=== PATIENT | female | born 2000 | race Caucasian/White ===

== ENCOUNTER 2020-04-14 06:57 | Outpatient (NON) | payer OTHER, SELFPAY ==
[2020-04-15 18:06] LABS: SARS-CoV-2 RNA PCR Negative
== END 2020-04-14 06:58 ==
PROVIDERS: PCP Pediatrics; Visit Provider Pediatrics
DX: Z20.828 Contact with and (suspected) exposure to other viral communicable diseases (principal)
CPT/HCPCS: 87635; C9803; U0003

== ENCOUNTER 2020-07-21 09:50 | Emergency (ER) | payer OTHER, SELFPAY ==
[2020-07-21 10:00] VITALS: BP 134/92; PULSE 95; RESP 16; TEMP 37.1; O2SAT 100
--- NOTE | 2020-07-21 10:12 | ED.ANIMALBIT ---
HPI - Animal Bite General Chief Complaint: Animal Bite Stated Complaint: DOG BITE Time Seen by Provider: 07/21/20 10:13 Source: patient and RN notes reviewed Mode of arrival: ambulatory Limitations: no limitations History of Present Illness HPI narrative: 19 year old female presents to express care with injury to her right distal middle finger which occurred 45 minutes ago from dog bite. Patient states she was at person's house where she was being introduced to dogs in which she was suppose to dog sit for, the dog which bit her is old and blind and family was planning to take this dog to their parents for them to watch. Patient states that she put her hand out to this dog to pet it and dog bit her on the distal right middle finger. She has puncture with avulsion type of injury to distal steve aspect of her 3rd right finger, with minimal subcutaneous flap type of laceration to the miroslava at nail bed with small bruise to nail, bleeding is controlled. She states that her tetanus is up to date and animal's vaccinations are current. MD complaint: animal bite Onset (ago): minute(s) (45 minutes ago) Animal: dog Description of animal: immunizations UTD and appeared well Mechanism: bite Location: other (right third finger) Location - Extremities: Right: hand (third finger) Pain description: other (aching) Severity scale (1-10): 6 Context: unprovoked Associated symptoms: bleeding Treatments prior to arrival: wound dressing(s) Related Data Patient tetanus UTD: Yes Allergies Allergy/AdvReac Type Severity Reaction Status Date / Time No Known Allergies Allergy Verified 07/21/20 10:00 Review of Systems Review of Systems: Narrative: CONSTITUTIONAL: Denies fever, chills, or sweats. EYES: Denies visual changes, redness, or discharge. ENT: Denies rhinorrhea, congestion, sore throat, or otalgia. CARDIOVASCULAR: Denies chest pain, palpitations, or edema. RESPIRATORY: Denies cough or dyspnea. GASTROINTESTINAL: Denies abdominal pain, nausea, vomiting, or diarrhea. GENITOURINARY: Denies dysuria or hematuria. SKIN: Denies rash or itching.positive for injury from dog bite to her distal right middle finger steve and dorsal regions, bleeding controlled MUSCULOSKELETAL: Denies back pain, joint pain, or myalgia. NEUROLOGIC: Denies headache, numbness, or weakness. PSYCHIATRIC: Denies anxiety or depression, tearful All systems reviewed & are unremarkable except as noted in HPI and below PMFSH Past Medical History Medical History (Updated 07/22/20 @ 11:32 by Esteal Huang NP) Chronic ear infection as child Surgical History Surgical History (Updated 07/22/20 @ 11:33 by Estela Huang NP) History of placement of ear tubes Family History Family History (Updated 07/22/20 @ 11:33 by Estela Huang NP) Grandparent Heart disease Social History Social History (Updated 07/22/20 @ 11:33 by Estela Huang NP) Smoking status: Never smoker Alcohol intake: never Substance use: never Living arrangements: with family Occupation/Education: student Gender identity (if verbalized by the patient): Female Comments At time of signature, agree with nursing past medical, surgical, social and family history. There is no relevant family history pertinent to the presenting complaint Exam Narrative: Exam Narrative: GENERAL: Well-appearing, well-nourished, and in no acute distress, tearful HEAD: Normocephalic, atraumatic. EYES: PERRLA and EOMI. ENT: Nares clear, no rhinorrhea or epistaxis. Mucous membranes moist. NECK: Supple.no lymphadenopathy CHEST: Clear to auscultation. No respiratory distress.SAO2 100% on room air HEART: Regular rate and rhythm. No murmur heard. Normal peripheral pulses. ABDOMEN: Soft, nontender, nondistended, normal active bowel sounds. EXTREMITIES: Normal range of motion. No edema. SKIN: Warm, dry, no rash. puncture wound with avulsion to distal steve aspect of right middle finger with minimally subcutaneous flap
== END 2020-07-21 10:49 | disposition home or self-care (01) ==
PROVIDERS: Emergency Provider Registered Nurse
DX: S61.232A Puncture wound without foreign body of right middle finger without damage to nail, initial encounter (principal); W54.0XXA Bitten by dog, initial encounter
CPT/HCPCS: 99213; G0463